=== PATIENT | male | born 1980 | race Caucasian/White ===

== ENCOUNTER 2019-04-22 21:36 | Emergency (ER) | payer OTHER ==
[~2019-04-22] VITALS: Ht 188 cm; Wt 122.5 kg
[2019-04-22 21:37] VITALS: BP 142/98
== END 2019-04-22 23:04 | disposition home or self-care (01) ==
LOC: ER 21:36
DX: J02.9 Acute pharyngitis, unspecified (principal); F17.200 Nicotine dependence, unspecified, uncomplicated